=== PATIENT | female | born 1950 | race Caucasian/White ===

== ENCOUNTER → 2016-07-15 | Outpatient (CLI) | payer BC ==
--- NOTE | 2016-07-23 08:45 | MM ---
Reason for exam: screening (asymptomatic). Last mammogram was performed 15 years and 7 months ago. History: Patient is postmenopausal and has history of other cancer at age 63. Cyst aspiration of the right breast, June 24, 2000. Physical Findings: A clinical breast exam by your physician is recommended on an annual basis and results should be correlated with mammographic findings. MG Screening Mammo w CAD Bilateral CC and MLO view(s) were taken. Prior study comparison: August 30, 2010, mammogram, performed at [place]. May 29, 2010, mammogram, performed at [place]. The breast tissue is heterogeneously dense. This may lower the sensitivity of mammography. There is chronic nodularity bilaterally. This finding is changed when compared with previous exams. ASSESSMENT: Incomplete: need additional imaging evaluation, BI-RAD 0 RECOMMENDATION: Ultrasound of both breasts. [facility] will attempt to contact patient to return for ultrasound.
== END | disposition home or self-care (01) ==
LOC: RADMAMWWP 16:58
PROVIDERS: ATTEND Family Medicine
DX: Z12.31 Encounter for screening mammogram for malignant neoplasm of breast (principal)

== ENCOUNTER → 2016-08-04 | Outpatient (CLI) | payer BC ==
--- NOTE | 2016-08-04 09:30 | USB ---
Reason for exam: additional evaluation requested from abnormal screening. History: Patient is postmenopausal and has history of other cancer at age 63. Cyst aspiration of the right breast, June 24, 2000. US Breast Workup ANGELA Right breast ultrasound includes all four quadrants, the retroareolar region and axilla. Finding demonstrates a 0.4 x 0.5 x 0.2cm oval cluster too small to characterize at 12 o'clock, a 0.4 x 0.4 x 0.4cm irregular, hypoechoic, taller than wide lesion, posterior shadow at 1 o'clock for which a 6 month follow up is recommended, a 0.4 x 0.4 x 0.4cm round, hypoechoic lesion at 7 o'clock, a 0.5 x 0.5 x 0.3cm oval, hypoechoic lesion 10 o'clock, a 0.5 x 0.7 x 0.4cm oval, cystic lesion at 11 o'clock, and a couple lesions at 5 o'clock. Left breast ultrasound includes all four quadrants, the retroareolar region and axilla. Finding demonstrates a 0.8 x 0.7 x 0.4cm oval, hypoechoic lesion at 12 o'clock, a 0.7 x 1.2 x 0.4cm oval, irregular, hypoechoic lesion at 1 o'clock, a couple lesions at 2 o'clock, a 0.5 x 0.5 x 0.3cm oval, vascular, questionable node at 3 o'clock, a duct at 4 o'clock, a 0.3 x 0.4 x 0.2cm oval lesion too small to characterize at 8 o'clock, a 0.6 x 0.5 x 0.6cm cluster at 9 o'clock, a 0.4 x 0.4 x 0.4cm hypoechoic lesion at 11 o'clock and a 0.5 x 0.4 x 0.4cm oval, cystic lesion at 11:30. These results were verbally communicated with the patient and result sheet given to the patient on 08/04/16. ASSESSMENT: Probably benign, BI-RAD 3 RECOMMENDATION: Ultrasound of the right breast in 6 months. (1 o'clock)
== END | disposition home or self-care (01) ==
LOC: RADUSWWP 06:46
PROVIDERS: ATTEND Family Medicine
DX: R92.8 Other abnormal and inconclusive findings on diagnostic imaging of breast (principal)

== ENCOUNTER → 2017-10-02 | Outpatient (CLI) | payer MEDICARE, BC ==
--- NOTE | 2017-10-05 08:33 | MM ---
Reason for exam: additional evaluation requested from prior study. Last mammogram was performed 1 year and 3 months ago. History: Patient is postmenopausal and has history of other cancer at age 63. Cyst aspiration of the right breast, June 24, 2000. Physical Findings: Nurse did not find any significant physical abnormalities on exam. MG 3D Diag Mammo W/Cad ANGELA Bilateral CC and MLO view(s) were taken. Prior study comparison: July 15, 2016, bilateral MG screening mammo w CAD. August 30, 2010, mammogram, performed at [place]. There are scattered fibroglandular densities. Stable benign calcifications. Bilateral nodularity. Ultrasound is recommended. These results were verbally communicated with the patient and result sheet given to the patient on 10/02/17. ASSESSMENT: Incomplete: need additional imaging evaluation, BI-RAD 0 RECOMMENDATION: Ultrasound of both breasts.
--- NOTE | 2017-10-05 08:35 | USB ---
Reason for exam: additional evaluation requested from abnormal screening. History: Patient is postmenopausal and has history of other cancer at age 63. Cyst aspiration of the right breast, June 24, 2000. US Breast Limited BILAT Right complete breast ultrasound includes all four quadrants, the retroareolar region and axilla. Finding demonstrates a 0.3 x 0.3 x 0.3cm hypoechoic lesion at 1 o'clock, a 0.5 x 0.4 x 0.6cm cystic cluster at 6 o'clock, a 0.9 x 0.6 x 1.0cm cystic lesion at 10 o'clock. Left limited breast ultrasound including focal area of concern, retroareolar and axilla demonstrates a 0.6 x 0.3 x 0.5cm cystic cluster at 9 o'clock. These results were verbally communicated with the patient and result sheet given to the patient on 10/02/17. ASSESSMENT: Probably benign, BI-RAD 3 RECOMMENDATION: Ultrasound of both breasts in 6 months.
== END | disposition home or self-care (01) ==
LOC: RADMAMWWP 14:31
PROVIDERS: ATTEND Internal Medicine Geriatric Medicine
DX: R92.8 Other abnormal and inconclusive findings on diagnostic imaging of breast (principal)
CPT/HCPCS: 77062; 77066

== ENCOUNTER → 2018-04-05 | Outpatient (CLI) | payer MEDICARE, BC ==
--- NOTE | 2018-04-05 10:43 | USB ---
Reason for exam: follow-up at short interval from prior study. History: Patient is postmenopausal and has history of other cancer at age 63. Cyst aspiration of the right breast, June 24, 2000. Physical Findings: Nurse did not find any significant physical abnormalities on exam. US Breast BILAT Right complete breast ultrasound includes all four quadrants, the retroareolar region and axilla. Finding demonstrates a 0.3 x 0.4 x 0.3cm oval, hypoechoic lesion at 1 o'clock possible shadowing, stable in size, biopsy recommended, a 0.5 x 0.7 x 0.4cm oval, cystic lesion at 1 o'clock, a 0.5 x 0.6 x 0.5cm oval, cystic cluster at 6 o'clock, a 0.5 x 0.4 x 0.2cm oval, complex cystic lesion at 10 o'clock and duct ectasia at the posterior nipple. Left complete breast ultrasound includes all four quadrants, the retroareolar region and axilla. Finding demonstrates a 0.8 x 1.0 x 0.3cm oval, irregular, cystic lesion at 1 o'clock, a 0.3 x 0.3 x 0.2cm oval, cystic cluster at 9 o'clock and a 0.8 x 0.5 x 0.5 oval, cystic lesion at 11 o'clock. These results were verbally communicated with the patient and result sheet given to the patient on 04/05/18. ASSESSMENT: Suspicious, BI-RAD 4 RECOMMENDATION: Ultrasound core biopsy of the right breast. (right 1 o'clock position) Called Dr. Vásquez with mammographic findings and has scheduled an appointment for the patient for 04/22/18 at 8:[address] Joshi. Biopsy scheduled for 04/15/18 at 2:00. PRELIMINARY REPORT CALLED AND FAXED TO DR. JOSHI ON 04/05/18.
== END | disposition home or self-care (01) ==
LOC: RADUSWWP 06:50
PROVIDERS: ATTEND Internal Medicine Geriatric Medicine
DX: R92.2 Inconclusive mammogram (principal)

== ENCOUNTER → 2018-04-15 | Day surgery (SDC) | payer MEDICARE, BC ==
[2018-04-15 13:44] VITALS: RESP 16; TEMP 97.9; BMI 32.5
[2018-04-15 14:35] VITALS: BP 146/66; PULSE 74
--- NOTE | 2018-04-15 15:16 | USB ---
EXAMINATION TYPE: US biopsy breast VAD RT, MG diagnostic mammo RT wo CAD DATE OF EXAM: 04/15/2018 CLINICAL HISTORY: R92.8 Abnormal Mammogram. TECHNIQUE: Ultrasound guided core biopsy of right breast. COMPARISON: 04/05/2018 ultrasound FINDINGS: The procedure of ultrasound guided core biopsy was explained to the patient. Benefits, alternatives, and risks were discussed. An informed consent was then obtained. Preprocedural timeout was performed. The patient was placed in supine positioning for imaging and for the procedure. The overlying skin was prepped and draped in usual sterile fashion. 10 cc of lidocaine without epinephrine buffered with bicarbonate was used as anesthetic into the skin and subcutaneous tissue up to the 0.3 x 0.4 x 0.3 cm mass in the right breast. Under ultrasound guidance, a 12-gauge vacuum assisted biopsy gun device was used to obtain 4 core samples. Following this, a coil-shaped biopsy marker was left at the site of biopsy. Post mammogram demonstrates appropriate clip placement. The patient tolerated the procedure well without any immediate complication. The patient was kept in the radiology department for short stay after the procedure and then discharged home in stable condition. IMPRESSION: Successful, uncomplicated ultrasound guided core biopsy of the 0.3 x 0.4 x 0.3 cm mass at the 1:00 position, full pathology results to follow. Recommendation for an additional similar appearing 3 mm mass also at the 1:00 position will be made on radiologic/pathologic correlation of the biopsied mass. Pathology Results: Benign RIGHT BREAST AT 1:00, NEEDLE CORE BIOPSY: Fibrocystic changes. Recommendation Follow up ultrasound of the right breast in 6 months. TEODORA
== END | disposition home or self-care (01) ==
LOC: RADUSWWP 13:20
PROVIDERS: ATTEND Surgery
DX: N60.31 Fibrosclerosis of right breast (principal)
CPT/HCPCS: 88305; 77065; 19083; A4648; J2001

== ENCOUNTER → 2018-07-30 | Outpatient (CLI) | payer MEDICARE, BC ==
--- NOTE | 2018-07-30 11:06 | CT ---
EXAMINATION TYPE: CT soft tissue neck w con DATE OF EXAM: 07/30/2018 9:35 AM COMPARISON: None HISTORY: chronic cough/neck mass CT DLP: 542 mGycm Automated exposure control for dose reduction was used. CONTRAST: CT scan of the neck is performed following with IV Contrast, patient injected with 100 mL of Isovue 3 00. Axial images are obtained, coronal and sagittal reformatted images are reviewed. FINDINGS: Airway: No gross abnormality seen. Parotid/submandibular glands: No gross abnormality seen. Carotid/Vascular Structures: Patent Osseous Structures: Mild degenerative disc changes are present Other: Some subcentimeter nodularity suspected within the thyroid IMPRESSION: No abnormality evident to account for patient's symptoms.
== END | disposition home or self-care (01) ==
LOC: RADCTMAIN 07:43
PROVIDERS: ATTEND Otolaryngology Otology & Neurotology
DX: R05 Cough (principal); Z01.812 Encounter for preprocedural laboratory examination; Z01.818 Encounter for other preprocedural examination
CPT/HCPCS: 82565; 84520; 70491; 36415; Q9967

== ENCOUNTER → 2018-09-17 | Outpatient (CLI) | payer MEDICARE, BC ==
--- NOTE | 2018-09-17 09:48 | XR ---
EXAMINATION TYPE: XR chest 2V DATE OF EXAM: 09/17/2018 COMPARISON: NONE HISTORY: Cough TECHNIQUE: Frontal and lateral views of the chest are obtained. FINDINGS: Interstitial prominence is seen throughout. There is no focal air space opacity, pleural e ffusion, or pneumothorax seen. Linear density overlying the mid abdomen on the lateral view only coul d be external to the patient. The cardiac silhouette size is within normal limits. The osseous str uctures are intact. IMPRESSION: 1. Diffuse interstitial prominence that can relate to atypical overload or airway disease such as bro nchitis. 2. Linear hyperdensity in the upper abdomen on lateral view only may be external to the patient. Abdo gerald radiograph could be performed if there is further clinical concern.
== END | disposition home or self-care (01) ==
LOC: RADXRMAIN 09:18
PROVIDERS: ATTEND Internal Medicine Geriatric Medicine
DX: R91.8 Other nonspecific abnormal finding of lung field (principal); R05 Cough
CPT/HCPCS: 71046

== ENCOUNTER → 2018-09-18 | Outpatient (CLI) | payer MEDICARE, BC ==
[2018-09-18 08:56] LABS: Basophils % (A) 1 %; Eosinophils # (A) 0.3 k/uL (0-0.7); Eosinophils % (A) 5 %; HCT 47.1 % (34.0-46.0); HGB 14.8 gm/dL (11.4-16.0); Lymphocytes # (A) 1.7 k/uL (1.0-4.8); Lymphocytes % (A) 25 %; MCH 31.2 pg (25.0-35.0); MCHC 31.5 g/dL (31.0-37.0); MCV 98.9 fL (80.0-100.0); Mean Platelet Volume 7.5; Monocytes # (A) 0.4 k/uL (0-1.0); Monocytes % (A) 6 %; Neutrophils # (A) 4.2 k/uL (1.3-7.7); Neutrophils % (A) 62 %; Platelet Count 349 k/uL (150-450); RBC 4.76 m/uL (3.80-5.40); RDW 13.9 % (11.5-15.5); WBC 6.8 k/uL (3.8-10.6)
[2018-09-18 16:32] LABS: LDL Cholesterol,Calculated 124.2 mg/dL (0.0-131.0); VLDL Calculation 19.8 mg/dL (5.00-40.00)
[2018-09-18 16:33] LABS: African American GFR (CKD) 77.2 (60.0-200.0); Albumin/Globulin Ratio 1.74 (1.60-3.17); Anion Gap 6.8 mmol/L (4.00-12.00); BUN/Creat Ratio 15.56 Ratio (12.00-20.00); Calcium 9.1 mg/dL (8.7-10.3); Carbon Dioxide 26.2 mmol/L (21.6-31.8); Globulin 2.3 g/dL (1.6-3.3); Potassium 4.6 mmol/L (3.5-5.5); Total Bilirubin 0.4 mg/dL (0.3-1.2); Total Protein 6.3 g/dL (6.2-8.2)
[2018-09-18 21:13] LABS: Hemoglobin A1C 5.7 % (4.0-6.0)
== END | disposition home or self-care (01) ==
LOC: LABWHC1 08:29
PROVIDERS: ATTEND Internal Medicine Geriatric Medicine
DX: Z00.00 Encounter for general adult medical examination without abnormal findings (principal); E78.2 Mixed hyperlipidemia; R79.9 Abnormal finding of blood chemistry, unspecified; D64.9 Anemia, unspecified
CPT/HCPCS: 36415; 80053; 80061; 83036; 84443; 85025

== ENCOUNTER → 2018-10-25 | Outpatient (CLI) | payer MEDICARE, BC ==
--- NOTE | 2018-10-25 09:20 | USB ---
Reason for exam: follow-up at short interval from prior study. History: Patient is postmenopausal and has history of other cancer at age 63. Benign US biopsy breast VAD RT of the right breast, April 15, 2018. Cyst aspiration of the right breast, June 24, 2000. Physical Findings: Nurse did not find any significant physical abnormalities on exam. US Breast Limited RT Right limited breast ultrasound including focal area of concern, retroareolar and axilla demonstrates a 10 x 5 x 8mm oval, cystic lesion at 12 o'clock and a 10 x 4 x 5mm lobular, cystic lesion at 3 o'clock. Simple cysts. These results were verbally communicated with the patient and result sheet given to the patient on 10/25/18. ASSESSMENT: Benign, BI-RAD 2 RECOMMENDATION: Routine screening mammogram of both breasts in 6 months. Back on schedule.
== END | disposition home or self-care (01) ==
LOC: RADUSWWP 07:37
PROVIDERS: ATTEND Surgery
DX: R92.8 Other abnormal and inconclusive findings on diagnostic imaging of breast (principal)

== ENCOUNTER → 2018-12-01 | Outpatient (CLI) | payer MEDICARE, BC ==
--- NOTE | 2018-12-01 16:30 | BD ---
EXAMINATION TYPE: Axial Bone Density DATE OF EXAM: 12/01/2018 COMPARISON: NONE CLINICAL HISTORY: osteoporosis Height: 5'6 Weight: 211 FRAX RISK QUESTIONS: History of Fracture in Adulthood: y Secondary Osteoporosis: 3. Menopause before 45: y RISK FACTORS HISTORY OF: Active: n Diet low in dairy products/other sources of calcium: y Postmenopausal woman: y MEDICATIONS: Additional Medications: gerd Additional History: EXAM MEASUREMENTS: Bone mineral densitometry was performed using the [employer]. Bone mineral density as measured about the Lumbar spine is: ----- L1-L4(G/cm2): 0.983 T Score Values are as follows: ----- L2: -1.1 ----- L3: -1.4 ----- L4: -1.5 ----- L1-L4: -1.6 Bone mineral density about the R hip (g/cm2): 0.827 Bone mineral density about the L hip (g/cm2): 0.783 T Score values are as follows: -----R Neck: -1.5 -----L Neck: -1.8 -----R Total: -1.1 -----L Total: -1.0 IMPRESSION: Osteopenia (T Score between -2.5 and -1). There is slightly increased risk of fracture and the patient may be considered for treatment. Re-Screen 2-5 years. NOTE: T-SCORE=SD OF THE YOUNG ADULT MEAN.
== END | disposition home or self-care (01) ==
LOC: RADBDWWP 07:10
PROVIDERS: ATTEND Internal Medicine Geriatric Medicine
DX: M85.80 Other specified disorders of bone density and structure, unspecified site (principal)
CPT/HCPCS: 77080

== ENCOUNTER → 2019-01-17 | Outpatient (CLI) | payer MEDICARE, BC ==
--- NOTE | 2019-01-17 09:23 | CT ---
EXAMINATION TYPE: CT chest wo con DATE OF EXAM: 01/17/2019 COMPARISON: None HISTORY: Cough CT DLP: 807.9 mGycm, Automated exposure control for dose reduction was used. CONTRAST: None TECHNIQUE: Axial images were obtained at 1 mm thick sections at 10 mm intervals. This will limit po rtions of the examination which may not be visualized within the [id number]. Images were obtained in the prone and supine views. FINDINGS: Portion of the thyroid visualized is normal. No suspicious lung nodules or focal infiltrat es are present. No enlarged mediastinal or hilar adenopathy is evident. The ascending aorta diameter at the level o f the main pulmonary artery is 3.5 cm. The main pulmonary artery diameter at the bifurcation is 3.[address] sections are obtained through the upper abdomen. Abdomen is essentially unremarkable. IMPRESSIONS: 1. Normal High Resolution Chest CT.
== END ==
LOC: RADCTMAIN 07:51
PROVIDERS: ATTEND Internal Medicine Critical Care Medicine
DX: R05 Cough (principal); Z91.040 Latex allergy status; Z91.09 Other allergy status, other than to drugs and biological substances
CPT/HCPCS: 71250

== ENCOUNTER → 2019-07-14 | Outpatient (CLI) | payer MEDICARE, BC ==
--- NOTE | 2019-07-19 10:57 | MM ---
Reason for exam: screening (asymptomatic). Last mammogram was performed 1 year and 3 months ago. History: Patient is postmenopausal and has history of other cancer at age 63. Benign US biopsy breast VAD RT of the right breast, April 15, 2018. Cyst aspiration of the right breast, June 24, 2000. Physical Findings: A clinical breast exam by your physician is recommended on an annual basis and results should be correlated with mammographic findings. MG 3D Screening Mammo W/Cad Bilateral CC and MLO view(s) were taken. XCCL view(s) were taken of the left breast. Prior study comparison: April 15, 2018, right breast MG diagnostic mammo RT wo CAD. October 02, 2017, bilateral MG 3d diag mammo w/cad ANGELA. The breast tissue is heterogeneously dense. This may lower the sensitivity of mammography. There is increased size of an 11mm right upper outer quadrant middle depth mass 4.5cm from nipple. Multiple other similar bilateral round and oval circumscribed masses compared to priors. Benign appearing bilateral calcifications in addition to an increasing group of left upper outer quadrant posterior depth calcifications measuring 3mm. Right biopsy marker noted. ASSESSMENT: Incomplete: need additional imaging evaluation, BI-RAD 0 RECOMMENDATION: Special view mammogram of the left breast. (calcifications) Ultrasound of both breasts. (upper outer quadrants) [facility] will attempt to contact patient to return for supplemental views and ultrasound.
== END | disposition home or self-care (01) ==
LOC: RADMAMWWP 14:31
PROVIDERS: ATTEND Internal Medicine Geriatric Medicine
DX: Z12.31 Encounter for screening mammogram for malignant neoplasm of breast (principal)
CPT/HCPCS: 77063; 77067

== ENCOUNTER → 2019-07-28 | Outpatient (CLI) | payer MEDICARE, BC ==
--- NOTE | 2019-08-01 09:09 | MM ---
Reason for exam: additional evaluation requested from abnormal screening. Last mammogram was performed less than 1 month ago. History: Patient is postmenopausal and has history of other cancer at age 63. Benign US biopsy breast VAD RT of the right breast, April 15, 2018. Cyst aspiration of the right breast, June 24, 2000. Physical Findings: Nurse did not find any significant physical abnormalities on exam. MG 3D Work Up W/Cad LT CC with magnification, ML with magnification, and ML view(s) were taken of the left breast. Prior study comparison: July 14, 2019, bilateral MG 3d screening mammo w/cad. April 15, 2018, right breast MG diagnostic mammo RT wo CAD. October 02, 2017, bilateral MG 3d diag mammo w/cad ANGELA. July 15, 2016, bilateral MG screening mammo w CAD. Finding: There are dystrophic, grouped/clustered calcifications in the upper outer quadrant, posterior position of the left breast. There is a chronic nodularity bilaterally upper outer quadrant. New finding and increase in number of calcifications since April 15, 2018, October 02, 2017, and July 15, 2016. These results were verbally communicated with the patient and result sheet given to the patient on 07/28/19. ASSESSMENT: Benign, BI-RAD 2 RECOMMENDATION: Return to routine screening mammogram schedule for both breasts.
--- NOTE | 2019-08-01 09:12 | USB ---
Reason for exam: additional evaluation requested from abnormal screening. History: Patient is postmenopausal and has history of other cancer at age 63. Benign US biopsy breast VAD RT of the right breast, April 15, 2018. Cyst aspiration of the right breast, June 24, 2000. US Breast Workup Limited ANGELA Technologist: Dary Fuentes Right limited breast ultrasound including focal area of concern, retroareolar and axilla demonstrates a 0.4 x 0.5 x 0.4cm circular, cystic lesion at 6 o'clock and a 1.2 x 1.1 x 0.9cm cystic cluster at 12 o'clock. Simple cysts. Left limited breast ultrasound including focal area of concern, retroareolar and axilla demonstrates a 0.5 x 0.4 x 0.4cm circular, cystic lesion at 12 o'clock, a 0.7 x 0.8 x 0.3cm oval, cystic lesion at 1 o'clock and a 0.6 x 0.5 x 0.3cm cystic cluster at 2 o'clock. Simple cysts. Overall fibrocystic change redemonstrated. These results were verbally communicated with the patient and result sheet given to the patient on 07/28/19. ASSESSMENT: Benign, BI-RAD 2 RECOMMENDATION: Return to routine screening mammogram schedule for both breasts.
== END | disposition home or self-care (01) ==
LOC: RADMAMWWP 13:28
PROVIDERS: ATTEND Internal Medicine Geriatric Medicine
DX: R92.8 Other abnormal and inconclusive findings on diagnostic imaging of breast (principal)
CPT/HCPCS: 77065; 76642; G0279; 77061

== ENCOUNTER → 2020-10-18 | Outpatient (CLI) | payer MEDICARE, BC ==
--- NOTE | 2020-10-19 10:46 | ECHOF ---
Referral Reason:R06.02 MEASUREMENTS -------- HEIGHT: 167.6 cm WEIGHT: 96.2 kg BP: RVIDd: 3.1 cm (< 3.3) IVSd: 1.1 cm (0.6 - 1.1) LVIDd: 3.9 cm (3.9 - 5.3) LVPWd: 1.2 cm (0.6 - 1.1) IVSs: 1.4 cm LVIDs: 2.7 cm LVPWs: 1.5 cm LAESV Index (A-L): 19.73 ml/m Ao Diam: 2.7 cm (2.0 - 3.7) AV Cusp: 1.7 cm (1.5 - 2.6) MV EXCURSION: 15.892 mm (> 18.000) MV EF SLOPE: 109 mm/s (70 - 150) EPSS: 1.3 cm MV E Yg: 0.72 m/s MV DecT: 238 ms MV A Yg: 0.98 m/s MV E/A Ratio: 0.73 RAP: 5.00 mmHg RVSP: 19.00 mmHg FINDINGS -------- Sinus rhythm. This was a technically adequate study. The left ventricular size is normal. There is borderline concentric left ventricular hypertrophy. Overall left ventricular systolic function is normal with, an EF between 55 - 60 %. The diastolic filling pattern is normal for the age of the patient 11.16. The right ventricle is normal in size. Normal LA size by volume 22+/-6 ml/m2. The right atrial size is normal. Interatrial and interventricular septum intact. There is no evidence of aortic regurgitation. There is no evidence of aortic stenosis. No mitral regurgitation. Mild tricuspid regurgitation present. There is no evidence of pulmonary hypertension. The right v entricular systolic pressure, as measured by Doppler, is 19.00mmHg. There is no pulmonic regurgitation present. The aortic root size is normal. Normal inferior vena cava with normal inspiratory collapse consistent with estimated right atrial pre ssure of 5 mmHg. There is no pericardial effusion. CONCLUSIONS -------- 1. The left ventricular size is normal. 2. There is borderline concentric left ventricular hypertrophy. 3. Overall left ventricular systolic function is normal with, an EF between 55 - 60 %. 4. The diastolic filling pattern is normal for the age of the patient 11.16 5. Mild tricuspid regurgitation present. FINANCIAL ACCOUNTANT: Rosalie Acosta RDCS
== END | disposition home or self-care (01) ==
LOC: RADECHMAIN 14:29
PROVIDERS: ATTEND Internal Medicine Geriatric Medicine
DX: I07.1 Rheumatic tricuspid insufficiency (principal)
CPT/HCPCS: 93306

== ENCOUNTER → 2020-12-20 | Outpatient (CLI) | payer MEDICARE, BC ==
--- NOTE | 2020-12-20 08:50 | BD ---
EXAMINATION TYPE: Axial Bone Density DATE OF EXAM: 12/20/2020 COMPARISON: NONE CLINICAL HISTORY: Height: 5 FT 5 IN Weight: 203 FRAX RISK QUESTIONS: Alcohol (3 or more units per day): NO Family History (Parent hip fracture): ADOPTED Glucocorticoids (More than 3mos): NO (Ex: prednisone, prednisolone, methylprednisolone, dexamethasone, and hydrocortisone). History of Fracture in Adulthood: YES Secondary Osteoporosis: 1. Type 1 Diabetes: NO 2. Hyperthyroidism: NO 3. Menopause before 45: YES 4. Malnutrition: NO 5. Chronic liver disease: NO Rheumatoid Arthritis: NO Current Tobacco Use: NO RISK FACTORS HISTORY OF: Surgery to Spine/Hip(right/left)/Wrist (right/left): NO Family History of Osteoporosis: ADOPTED Active: NO Diet low in dairy products/other sources of calcium: NO Postmenopausal woman: YES Take estrogen and/or progesterone medications: NO Lost more than 2 inches in height since high school: NO Poor Health: GOOD MEDICATIONS: Additional Medications: VALTREX,ADDORAX, OMEPRAZOLE Additional History: EXAM MEASUREMENTS: Bone mineral densitometry was performed using the [employer]. Bone mineral density as measured about the Lumbar spine is: ----- L1-L4(G/cm2): 1.017 T Score Values are as follows: ----- L2: -0.4 ----- L3: -1.3 ----- L4: -1.5 ----- L1-L4: -1.4 Bone mineral density has: INCREASED 2.9 % since study of: 2019 Bone mineral density about the R hip (g/cm2): 0.788 Bone mineral density about the L hip (g/cm2): 0.797 T Score values are as follows: -----R Neck: -1.8 -----L Neck: -1.7 -----R Total: -1.3 -----L Total: -1.0 Bone mineral density has: DECREASED -1.0 % since study of: 2019 IMPRESSION: Osteopenia (T Score between -2.5 and -1). There is slightly increased risk of fracture and the patient may be considered for treatment. Re-Screen 2-5 years. NOTE: T-SCORE=SD OF THE YOUNG ADULT MEAN.
--- NOTE | 2020-12-20 13:35 | MM ---
Reason for exam: screening (asymptomatic). Last mammogram was performed 1 year and 5 months ago. History: Patient is postmenopausal and has history of other cancer at age 63. Benign US biopsy breast VAD RT of the right breast, April 15, 2018. Cyst aspiration of the right breast, June 24, 2000. Physical Findings: A clinical breast exam by your physician is recommended on an annual basis and results should be correlated with mammographic findings. MG 3D Screening Mammo W/Cad Bilateral CC and MLO view(s) were taken. Prior study comparison: July 14, 2019, bilateral MG 3d screening mammo w/cad. October 02, 2017, bilateral MG 3d diag mammo w/cad ANGELA. The breast tissue is heterogeneously dense. This may lower the sensitivity of mammography. There are benign appearing round dystrophic calcifications bilaterally. Previous mammotome biopsy in the right breast. There is chronic nodularity bilaterally, greater in the right breast, no enlarging nodules/masses. There is no discrete abnormality. ASSESSMENT: Benign, BI-RAD 2 RECOMMENDATION: Routine screening mammogram of both breasts in 1 year.
== END | disposition home or self-care (01) ==
LOC: RADMAMWWP 06:58
PROVIDERS: ATTEND Internal Medicine Geriatric Medicine
DX: Z12.31 Encounter for screening mammogram for malignant neoplasm of breast (principal); M81.0 Age-related osteoporosis without current pathological fracture; M85.80 Other specified disorders of bone density and structure, unspecified site
CPT/HCPCS: 77063; 77067; 77080

== ENCOUNTER 2021-01-14 19:47 | Emergency (ER) | payer MEDICARE, BC ==
[2021-01-14 19:53] VITALS: BP 132/85; PULSE 65; RESP 18; TEMP 97.9
[2021-01-14] MEDS ORDERED: KETOROLAC 30 MG/ML 1 ML VIAL IM STA (20:50)
--- NOTE | 2021-01-14 20:54 | XR ---
EXAMINATION TYPE: XR ankle complete LT DATE OF EXAM: 01/14/2021 COMPARISON: NONE HISTORY: Pain TECHNIQUE: 3 views FINDINGS: There is nondisplaced 1 cm chip fracture of the tip of the distal fibula. There is lateral soft tissue swelling. Ankle mortise is anatomic. IMPRESSION: Nondisplaced chip fracture of the distal fibula.
[2021-01-14] MEDS ORDERED: ACET/COD 300 MG/30 MG STARTER PACK 6 TAB BTL PO STA (21:10)
--- NOTE | 2021-01-14 21:12 | ED ---
Lower Extremity Injury HPI - General Chief Complaint: Extremity Injury, Lower Stated Complaint: left ankle sprain Time Seen by Provider: 01/14/21 20:31 Source: patient, RN notes reviewed Mode of arrival: ambulatory Limitations: no limitations - History of Present Illness Initial Comments: Patient is a 70-year-old female that presents to the emergency department complaining of left ankle pain. She notes she stepped out of her car rolled her ankle felt a pop. She no she can emergency room to get evaluated for possible fracture. Patient was otherwise well-appearing in good spirits while sitting up in bed in exam interview. She notes that it does hurt to pull weight on her ankle. She noted that she does have full sensation and feeling in her left lower extremities. She denied chest pain short of breath headache nausea vomiting diarrhea constipation fever fatigue chills. - Related Data Home Medications Medication Instructions Recorded Confirmed Acyclovir [Zovirax] 800 mg PO BID 04/05/18 04/15/18 Omeprazole [PriLOSEC] 10 mg PO DAILY 04/05/18 04/15/18 Allergies Allergy/AdvReac Type Severity Reaction Status Date / Time Latex, Natural Rubber AdvReac Swelling Verified 01/14/21 19:53 nickel AdvReac Rash/Hives Verified 01/14/21 19:53 Review of Systems ROS Statement: Those systems with pertinent positive or pertinent negative responses have been documented in the HPI. ROS Other: All systems not noted in ROS Statement are negative. Past Medical History Past Medical History: No Reported History Additional Past Medical History / Comment(s): kidney stones History of Any Multi-Drug Resistant Organisms: None Reported Past Surgical History: Hysterectomy, Orthopedic Surgery, Tonsillectomy Additional Past Surgical History / Comment(s): lasix, right ankle 20 yrs ago, bunions removed 20 yrs ago Past Anesthesia/Blood Transfusion Reactions: No Reported Reaction Past Psychological History: No Psychological Hx Reported Smoking Status: Never smoker Past Alcohol Use History: None Reported Past Drug Use History: None Reported General Exam Limitations: no limitations General appearance: alert, in no apparent distress Head exam: Present: atraumatic, normocephalic, normal inspection Eye exam: Present: normal appearance, PERRL, EOMI. Absent: scleral icterus, conjunctival injection, periorbital swelling ENT exam: Present: normal exam, mucous membranes moist Neck exam: Present: normal inspection Respiratory exam: Present: normal lung sounds bilaterally. Absent: respiratory distress, wheezes, rales, rhonchi, stridor Cardiovascular Exam: Present: regular rate, normal rhythm, normal heart sounds. Absent: systolic murmur, diastolic murmur, rubs, gallop, clicks GI/Abdominal exam: Present: soft, normal bowel sounds. Absent: distended, tenderness, guarding, rebound, rigid Extremities exam: Present: normal inspection, full ROM, normal capillary refill. Absent: tenderness, pedal edema, joint swelling, calf tenderness Left Ankle exam: Present: normal inspection, tenderness (Over the lateral malleoli), swelling (Lateral malleoli). Absent: full ROM (Secondary to pain), abrasion, laceration, ecchymosis, deformity Neurological exam: Present: alert, oriented X3 Psychiatric exam: Present: normal affect, normal mood Skin exam: Present: warm, dry, intact, normal color. Absent: rash Course Vital Signs 01/14/21 19:50 Temperature 97.9 F Pulse Rate 65 Respiratory 18 Rate Blood Pressure 132/85 O2 Sat by Pulse 95 Oximetry Procedures - Orthopedic Splinting/Casting Injury #1 Side: left Lower Extremity Injury Location: ankle Lower Extremity Immobilizer: posterior splint, Jimbo wrap, synthetic pre-padded splint Other Orthopedic Equipment: crutches Medical Decision Making - Medical Decision Making 70-year-old female with left ankle pain after rolling it. X-ray left ankle, 15 g Toradol ordered. X-ray shows a left fibular chip fracture. Patient was splinted and will be given crutches. Case discussed with Dr. Connell, patient can discharge home with follow-up to orthopedics. - Radiology Data Radiology results: report reviewed, image reviewed X-ray left ankle: Nondisplaced chip fracture of distal fibula Disposition Clinical Impression: Left fibular fracture Disposition: HOME SELF-CARE Condition: Stable Instructions (If sedation given, give patient instructions): Ankle Fracture (ED) Additional Instructions: Please return to the Emergency Department if symptoms worsen or any other concerns. Follow-up with primary care in 1-2 days. Follow-up with orthopedics as soon as possible. Take, 3 as prescribed. Is patient prescribed a controlled substance at d/c from ED?: No Referrals: Siva Vásquez MD [Primary Care Provider] - 1-2 days Ishaan Monroe MD [Medical Doctor] - 1-2 days Time of Disposition: 21:12
== END 2021-01-14 21:28 | disposition home or self-care (01) ==
LOC: EC 19:47
DX: S82.832A Other fracture of upper and lower end of left fibula, initial encounter for closed fracture (principal); Z91.040 Latex allergy status; Z91.09 Other allergy status, other than to drugs and biological substances; X50.1XXA Overexertion from prolonged static or awkward postures, initial encounter
CPT/HCPCS: 73610; 99283; 96372; 29515; J1885

== ENCOUNTER → 2021-01-31 | Outpatient (CLI) | payer MEDICARE, BC ==
--- NOTE | 2021-01-31 14:08 | US ---
EXAMINATION TYPE: US venous doppler duplex LE BI DATE OF EXAM: 01/31/2021 1:50 PM COMPARISON: NONE CLINICAL HISTORY: 70-year-old female M25.561 PAIN IN RT KNEE,[id number] SPRAIN RT KNEE. Right thigh debra n. Right knee injury and left ankle injury 2-3 weeks ago SIDE PERFORMED: Bilateral TECHNIQUE: The lower extremity deep venous system is examined utilizing real time linear array sonog matt with graded compression, doppler sonography and color-flow sonography. FINDINGS: VESSELS IMAGED: Common Femoral Vein Deep Femoral Vein Greater Saphenous Vein * Femoral Vein Popliteal Vein Small Saphenous Vein * Proximal Calf Veins Posterior tibial veins (* superficial vessels) Right Leg: no evidence of DVT Left Leg: no evidence of DVT IMPRESSION: No evidence for DVT within the bilateral lower extremities.
== END | disposition home or self-care (01) ==
LOC: RADUSWWP 12:58
PROVIDERS: ATTEND Orthopaedic Surgery
DX: S83.91XD Sprain of unspecified site of right knee, subsequent encounter (principal); S82.65XD Nondisplaced fracture of lateral malleolus of left fibula, subsequent encounter for closed fracture with routine healing; I80.9 Phlebitis and thrombophlebitis of unspecified site; X58.XXXD Exposure to other specified factors, subsequent encounter
CPT/HCPCS: 93970

== ENCOUNTER → 2022-06-05 | Outpatient (CLI) | payer MEDICARE ==
--- NOTE | 2022-06-07 20:40 | MM ---
Reason for Exam: Screening (asymptomatic). Last mammogram was performed 1 year(s) and 5 month(s) ago. Patient History: Menarche at age 14. First Full-Term at age 28. Left ovary removed at age 38. Hysterectomy at age 38. Postmenopausal. Patient has history of breast feeding. Other cancer, age 63. 04/15/2018, Benign Core Biopsy on the right side. 06/24/2000, Cyst Aspiration on the Right side. Risk Values: Leslee 5 year model risk: 2.3%. NCI Lifetime model risk: 6.9%. Prior Study Comparison: 07/14/2019 Bilateral Screening Mammogram, [facility]. 07/28/2019 Left Diagnostic Mammogram, [facility]. 12/20/2020 Bilateral Screening Mammogram, [facility]. Tissue Density: There are scattered fibroglandular densities. Findings: Analyzed By CAD. Chronic bilateral nodularity and overall benign pattern. Microclip right breast from prior biopsy. No significant change from prior exams. Overall Assessment: Benign, BI-RAD 2 Management: Screening Mammogram of both breasts in 1 year. . Patient should continue monthly self-breast exams. A clinical breast exam by your physician is recommended on an annual basis. This exam should not preclude additional follow-up of suspicious palpable abnormalities. Note on Leslee scores and lifetime risk: 1. A Leslee score greater than 3% is considered moderate risk. If this is the case, consider specialist referral to assess eligibility for a risk reducing agent. 2. If overall lifetime risk for the development of breast cancer is 20% or higher, the patient may qualify for future screening with alternating mammogram and breast MRI. Electronically signed and approved by: Ned Manjarrez M.D. Radiologist
== END | disposition home or self-care (01) ==
LOC: RADMAMWWP 14:18
PROVIDERS: ATTEND Internal Medicine Geriatric Medicine
DX: Z12.31 Encounter for screening mammogram for malignant neoplasm of breast (principal); Z78.0 Asymptomatic menopausal state
CPT/HCPCS: 77063; 77067

== ENCOUNTER → 2022-08-04 | Outpatient (CLI) | payer MEDICARE, BC ==
--- NOTE | 2022-08-04 12:01 | XR ---
EXAMINATION TYPE: XR chest 2V DATE OF EXAM: 08/04/2022 COMPARISON: 09/17/2018 INDICATION: Cough and wheezing x3 weeks TECHNIQUE: Frontal and lateral views of the chest are obtained. FINDINGS: The heart size is normal. The pulmonary vasculature is normal. The lungs are clear. IMPRESSION: 1. No acute pulmonary process.
== END | disposition home or self-care (01) ==
LOC: RADXRMAIN 11:41
PROVIDERS: ATTEND Physician Assistant
DX: R06.02 Shortness of breath (principal); R05.9 Cough, unspecified; R06.2 Wheezing
CPT/HCPCS: 71046

== ENCOUNTER → 2023-06-10 | Outpatient (CLI) | payer MEDICARE, BC ==
--- NOTE | 2023-06-10 11:18 | XR ---
EXAMINATION TYPE: XR chest 2V DATE OF EXAM: 06/10/2023 COMPARISON: 08/04/2022 INDICATION: Short of breath cough TECHNIQUE: Frontal and lateral views of the chest are obtained. FINDINGS: The heart size is normal. The pulmonary vasculature is normal. The lungs are clear. IMPRESSION: 1. No acute pulmonary process.
== END | disposition home or self-care (01) ==
LOC: RADXRMAIN 11:00
PROVIDERS: ATTEND Internal Medicine Geriatric Medicine
DX: R06.02 Shortness of breath (principal)
CPT/HCPCS: 71046

== ENCOUNTER → 2023-06-23 | Outpatient (CLI) | payer MEDICARE, BC ==
--- NOTE | 2023-06-23 20:44 | BD ---
EXAMINATION TYPE: Axial Bone Density DATE OF EXAM: 06/23/2023 CLINICAL HISTORY: 72 years old Female. ICD-10 CODE: M81.0 AGE RELATED OSTEOPOROSIS Height: 64.2 Weight: 187 FRAX RISK QUESTIONS: Family History (Parent hip fracture): unknown History of Fracture in Adulthood: yes Secondary Osteoporosis: yes 3. Menopause before 45: yes RISK FACTORS HISTORY OF: hx of both ankle breaks and both great toes and other smaller toes, MEDICATIONS: valtrex, addorax, reflux meds, multivitamin with d and ca, biotin, collagen, EXAM MEASUREMENTS: Bone mineral densitometry was performed using the Cynny System. Bone mineral density as measured about the Lumbar spine is: ----- L1-L4(G/cm2): 0.958 T Score Values are as follows: ----- L1: -2.7 ----- L2: -1.0 ----- L3: -1.7 ----- L4: -2.1 ----- L1-L4: -1.9 Z Score Values are as follows: ----- L1: -1.7 ----- L2: 0.0 ----- L3: -0.7 ----- L4: -1.1 ----- L1-L4: -0.8 Bone mineral density has: Decreased -5.8% since study of: 12.20.2020 Bone mineral density about the R hip (g/cm2): 0.833 Bone mineral density about the L hip (g/cm2): 0.832 T Score values are as follows: -----R Neck: -1.9 -----L Neck: -2.1 -----R Total: -1.4 -----L Total: -1.4 Z Score values are as follows: -----R Neck: -0.6 -----L Neck: -0.8 -----R Total: -0.4 -----L Total: -0.4 Bone mineral density has: Decreased -3.5% since study of: 12.20.2020 FRAX%s: The graph provided illustrates a 19.0% chance for a major osteoporotic fx and a 3.9% chance f or the hips probability for fx in 10 years time. IMPRESSION: Osteopenia (T Score between -2.5 and -1). There is slightly increased risk of fracture and the patient may be considered for treatment. Re-Screen 2-5 years. NOTE: T-SCORE=SD OF THE YOUNG ADULT MEAN.
--- NOTE | 2023-06-24 18:43 | MM ---
Reason for Exam: Screening (asymptomatic). Last mammogram was performed 1 year(s) and 1 month(s) ago. Patient History: Menarche at age 14. First Full-Term at age 28. Left ovary removed at age 38. Hysterectomy at age 38. Postmenopausal. Patient has history of breast feeding. 04/15/2018, Benign Core Biopsy on the right side. 06/24/2000, Cyst Aspiration on the Right side. Risk Values: Leslee 5 year model risk: 2.3%. NCI Lifetime model risk: 6.6%. Prior Study Comparison: 07/28/2019 Left Diagnostic Mammogram, [facility]. 12/20/2020 Bilateral Screening Mammogram, [facility]. 06/05/2022 Bilateral MG 3D screening mammo w/cad, [facility]. Tissue Density: There are scattered areas of fibroglandular density. Findings: Analyzed By CAD. Chronic bilateral nodularity. Unchanged coarse calcifications left upper outer quadrant. A few scattered benign oil cyst calcifications are also unchanged. Microclip right breast from prior biopsy. There is no suspicious group of microcalcifications or new suspicious mass in either breast. Overall Assessment: Benign, BI-RAD 2 Management: Screening Mammogram of both breasts in 1 year. . Patient should continue monthly self-breast exams. A clinical breast exam by your physician is recommended on an annual basis. This exam should not preclude additional follow-up of suspicious palpable abnormalities. Note on Leslee scores and lifetime risk: 1. A Leslee score greater than 3% is considered moderate risk. If this is the case, consider specialist referral to assess eligibility for a risk reducing agent. 2. If overall lifetime risk for the development of breast cancer is 20% or higher, the patient may qualify for future screening with alternating mammogram and breast MRI. Electronically signed and approved by: Ned Manjarrez M.D. Radiologist
== END | disposition home or self-care (01) ==
LOC: RADMAMWWP 08:58
PROVIDERS: ATTEND Internal Medicine Geriatric Medicine
DX: Z12.31 Encounter for screening mammogram for malignant neoplasm of breast (principal); M85.89 Other specified disorders of bone density and structure, multiple sites; M81.0 Age-related osteoporosis without current pathological fracture; Z78.0 Asymptomatic menopausal state
CPT/HCPCS: 77063; 77067; 77080

== ENCOUNTER 2024-04-21 12:48 | Day surgery (SDC) | payer MEDICARE, OTHER ==
[~2024-04-21 12:48] MED LIST: LIDOCAINE 1% (10MG/ML) FOR IV START INTRADERMA PRN
[2024-04-21 13:05] VITALS: TEMP 97.3
[2024-04-21] MEDS: LACTATED RINGERS 1,000 ML IV SCH (13:10)
[2024-04-21] MEDS: IV FLUID CONTINUATION 1,000 ML IV ONE (13:10)
[2024-04-21] MEDS: ONDANSETRON 4 MG/2 ML VIAL IVP STA (13:19)
[2024-04-21] MEDS: DEXAMETHASONE SOD PHOSPHATE 4 MG/ML 1 ML VIAL IVP STA (13:20)
[2024-04-21] MEDS ORDERED: LIDOCAINE 1% INJ 10MG/ML (20 ML MDV) ONE (13:42)
[2024-04-21] MEDS ORDERED: PROPOFOL 10 MG/ML 20 ML VIAL IV ONE (13:42)
[2024-04-21] MEDS ORDERED: GLYCOPYRROLATE 0.2 MG/ML 2 ML VIAL ONE (13:42)
--- NOTE | 2024-04-21 13:46 | P.GSHP ---
History of Present Illness H&P Date: 04/21/24 Chief Complaint: Colon cancer screening 73-year-old female here for colonoscopy. Last colonoscopy about 7 to 8 years ago. Believes that was normal. No known family history of colon cancer however patient adopted. No bowel complaints. Past Medical History Past Medical History: Cancer, Eye Disorder, Skin Disorder Additional Past Medical History / Comment(s): hx. kidney stones, hx of frequent hives-unknown etiology, basal cell skin cancer, double vision marlo eyes-will be having surgery on in future, chronic cough for years History of Any Multi-Drug Resistant Organisms: None Reported Past Surgical History: Hysterectomy, Orthopedic Surgery, Tonsillectomy Additional Past Surgical History / Comment(s): lasik eye surg, right ankle surg. 20 yrs ago, bunions removed 20 yrs ago Past Anesthesia/Blood Transfusion Reactions: Motion Sickness, Postoperative Nausea & Vomiting (PONV) Additional Past Anesthesia/Blood Transfusion Reaction / Comment(s): pt adopted Smoking Status: Never smoker Medications and Allergies Home Medications Medication Instructions Recorded Confirmed Type Pil[place]ine 1% Ophth Soln [Isopto 1 drops LEFT EYE 1700 04/19/24 04/21/24 History Carpine 1%] hydrOXYzine HCL [Atarax] 25 mg PO TID PRN 04/19/24 04/21/24 History valACYclovir HCL [Valtrex] 1 gm PO DAILY 04/19/24 04/21/24 History Allergies Allergy/AdvReac Type Severity Reaction Status Date / Time Latex, Natural Rubber AdvReac Swelling Verified 04/21/24 13:11 nickel AdvReac Rash/Hives Verified 04/21/24 13:11 Surgical - Exam Vital Signs Temp Pulse Resp BP Pulse Ox 97.3 F L 97 18 140/66 98 04/21/24 13:03 04/21/24 13:03 04/21/24 13:03 04/21/24 13:03 04/21/24 13:03 Physical exam: General: Well-developed, well-nourished HEENT: Normocephalic, sclerae nonicteric Abdomen: Nontender, nondistended Extremities: No edema Neuro: Alert and oriented Assessment and Plan (1) Colon cancer screening Narrative/Plan: Will proceed with colonoscopy at this time. Current Visit: Yes Status: Acute Code(s): Z12.11 - ENCOUNTER FOR SCREENING FOR MALIGNANT NEOPLASM OF COLON SNOMED Code(s): 798028415
--- NOTE | 2024-04-21 14:00 | P.PCN ---
Date of Procedure: 04/21/24 Procedure(s) Performed: PREOPERATIVE DIAGNOSIS: Colon cancer screening POSTOPERATIVE DIAGNOSIS: Normal exam with exception of proximal colonic melanosis coli PROCEDURE: Colonoscopy ANESTHESIA: MAC SURGEON: Stephen Joshi M.D. SPECIMENS: None ENDOSCOPIC PROCEDURE: The patient was placed on the endoscopy table in the left decubitus position. The Olympus colonoscope was inserted into the anus and passed under direct visualization to the base of the cecum. The appendiceal orifice was visualized. From that point the scope was slowly withdrawn inspecting all surfaces carefully. There were no neoplastic inflammatory or polypoid lesions throughout the cecum, ascending, transverse, descending, sigmoid and rectum. The patient had melanosis coli of the proximal colon. There was no visible diverticulosis noted. Digital rectal examination was normal. The patient was taken to the recovery room in stable condition per anesthesia guidelines. RECOMMENDATIONS: Resume diet. Consider repeat colonoscopy 10 years.
[2024-04-21 14:08] VITALS: RESP 16
[2024-04-21 14:22] VITALS: BP 129/69; PULSE 79
== END 2024-04-21 14:47 | disposition home or self-care (01) ==
LOC: ORWHC2ENDO 12:48
PROVIDERS: ATTEND Surgery
DX: Z12.11 Encounter for screening for malignant neoplasm of colon (principal); K63.89 Other specified diseases of intestine; Z87.442 Personal history of urinary calculi; Z85.828 Personal history of other malignant neoplasm of skin; Z90.710 Acquired absence of both cervix and uterus; Z91.040 Latex allergy status
CPT/HCPCS: J1100; J2405; J2003; J2704; J1596; G0121; 45378